=== PATIENT | male | born 1950 | race Caucasian/White ===

== ENCOUNTER 2021-08-31 18:42 | Emergency (ER) | payer OTHER, SELFPAY ==
[2021-08-31 18:46] VITALS: BP 172/88; PULSE 83; RESP 20; TEMP 36.7; O2SAT 99
--- NOTE | 2021-08-31 18:54 | DI.RAD.S_ITS ---
PROCEDURE: XR SHOULDER LT MIN 2V INDICATIONS: pain TECHNIQUE: 3 views of the shoulder were acquired. COMPARISON: None. FINDINGS: Bones: No fractures or dislocations. Lucent focus is present overlying the greater tubercle. There is no visualized superimposed fracture. No priors are available for comparison. Acromioclavicular degenerative narrowing is present. Soft tissues: No suspicious soft tissue calcifications. IMPRESSION: Acromioclavicular degenerative narrowing. Lucency overlying the region of the greater tubercle. This could represent a cyst or possibly enchondroma. No priors are available for comparison. If this correlates to area of pain, MRI with without contrast is recommended for further evaluation. No superimposed fractures identified. Dictated by: Gregoria Boss M.D. on 08/31/2021 at 19:28 Approved by: Gregoria Boss M.D. on 08/31/2021 at 19:30
--- NOTE | 2021-08-31 21:43 | ED_ITS ---
HPI - Extremity Injury (Upper) General Chief Complaint: Extremity Injury, Upper Stated Complaint: Left shoulder injury Time Seen by Provider: 08/31/21 21:37 Source: patient Mode of arrival: Ambulatory History of Present Illness HPI narrative: Patient here for off and on left shoulder pain that worsened 10 days ago when lifting a golf club with an outstretched hand. He has fell off and on popping and cracking in his right shoulder in the past. [place] pain in the deltoid lateral area. Patient has more pain in the posterior deltoid shoulder area. Has not seen his orthopedic doctor for this. He is scheduled for right knee surgery in October of this year with Dr. Elias orthopedics at [facility] in [place]. Patient does compete sail boat racing. Today he was doing a maneuver with this shoulder and felt pain again. Related Data Allergies Allergy/AdvReac Type Severity Reaction Status Date / Time blue dye Allergy Verified 08/31/21 18:51 Review of Systems Review of Systems Narrative: GENERAL: Denies chills, fatigue, malaise, fever, sweats. HEENT: Denies sinus pain, ear pain, sore throat RESPIRATORY: Denies dyspnea, cough CARDIOVASCULAR: Denies chest pain, palpitations GASTROINTESTINAL: Denies nausea, vomiting, abdominal pain : Denies dysuria, frequency, hematuria MUSCULOSKELETAL: Positive for muscle or bony pain SKIN: Denies rash, skin lesions NEUROLOGIC: Denies weakness, numbness ROS Unobtainable: All systems reviewed & are unremarkable except as noted in HPI and below Exam Narrative Exam Narrative: GENERAL: in no distress, not toxic not dyspneic HEAD: Normocephalic. CARDIOVASCULAR: Regular rate and rhythm without murmurs RESPIRATORY: Clear to auscultation. Breath sounds equal bilaterally. No wheezes, rales, or rhonchi. EXTREMITIES: No gross deformities. Left shoulder to fingertips exposed. Nontender wrist elbow. 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 Full active range of motion of the wrist and elbow. There is increased pain with raising hand above his head and behind his back. Increased pain with forward flexion and external rotation of the left shoulder. NEURO: AOx4. SKIN: Warm and dry PSYCH: Not anxious, is cooperative Initial Vital Signs Initial Vital Signs: Vital Signs Temperature 98.1 F 08/31/21 18:46 Pulse Rate 83 06/22/22 18:46 Respiratory Rate 20 08/31/21 18:46 Blood Pressure 172/88 H 08/31/21 18:46 Pulse Oximetry 99 08/31/21 18:46 Oxygen Delivery Method 08/31/21 18:46 Course Course Course Narrative: No new issues during course of stay Orders Ordered: ED Orders 08/31/21 18:54 XR shoulder LT min 2V Stat Reevaluation(s) Reevaluation #1: Reviewed exam and x-ray with patient. Likely rotator cuff injury. He will need to follow-up with his orthopedic doctor as well as get outpatient MRI of the shoulder. He agrees and will limit his sports activity. Time: 21:48 Vital Signs Vital signs: Vital Signs - 8 hr 08/31/21 21:52 Pulse Rate 80 Respiratory Rate 18 Blood Pressure 189/93 H Pulse Oximetry 99 Oxygen Delivery Method Room Air MDM - Extremity Injury (Upper) Differential Diagnosis Differential diagnosis: Likely other (Shoulder strain/sprain/rotator cuff injury/biceps/muscle strain) Imaging Data Extremity x-ray #1: Radiologist's Impression: [address] [address] XRay Report Signed Patient: Jarvis Soto MR#: [id number] : 1950 Acct:[id number] Age/Sex: 71 / M Date of Service: 08/31/21 Loc: ED Accession Number: [id number] ?? Procedure: XR shoulder LT min 2V Ordering Provider: Shaheen Martinez MD PROCEDURE:? XR SHOULDER LT MIN 2V ? INDICATIONS:? pain ? TECHNIQUE:? 3 views of the shoulder were acquired.? ? COMPARISON:? None. ? FINDINGS:? ? Bones:? No fractures or dislocations.? Lucent focus is present overlying the greater tubercle.? There is no visualized superimposed fracture.? No priors are available for comparison.? Acromioclavicular degenerative narrowing is present. ? Soft tissues:? No suspicious soft tissue calcifications.? ? IMPRESSION:? ? Acromioclavicular degenerative narrowing. ? Lucency overlying the region of the greater tubercle.? This could represent a cyst or possibly enchondroma.? No priors are available for comparison. If this correlates to area of pain, MRI with without contrast is recommended for further evaluation.? No superimposed fractures identified.? ? Dictated by: Gregoria Boss M.D. on 08/31/2021 at 19:28 ? ? Approved by: Gregoria Boss M.D. on 08/31/2021 at 19:30 ? MDM Narrative Medical decision making narrative: Appropriate for discharge home. Likely rotator cuff injury in differential diagnosis but not limited to it. Appropriate for outpatient MRI and follow up with his established orthopedic doctor. Return precautions reviewed with patient. Discharge Plan Departure Patient Disposition: Home Clinical Impression: Left shoulder strain Instructions: DI for Shoulder Sprain Activity Restrictions/Additional Instructions: Call your orthopedic doctor tomorrow for office evaluation of your left shoulder and to get MRI of your shoulder. Any further sports activity to the shoulder will worsen the injury. Recommend resting from sport activity of the shoulder. May continue ibuprofen or Tylenol for pain. Return if worse or if any questions or concerns Visit Report Forms: Patient Portal/API
[2021-08-31 21:52] VITALS: BP 189/93; PULSE 80; RESP 18; O2SAT 99
--- NOTE | 2021-08-31 21:52 | PC.NURSE ---
Injured extremity exam deferred to DR Martinez.
== END 2021-08-31 21:53 | disposition home or self-care (01) ==
PROVIDERS: Emergency Provider Emergency Medicine
DX: S46.912A Strain of unspecified muscle, fascia and tendon at shoulder and upper arm level, left arm, initial encounter (principal); W19.XXXA Unspecified fall, initial encounter
CPT/HCPCS: 73030; 99281; 99283